=== PATIENT | female | born 1960 | race Caucasian/White ===

== ENCOUNTER 2022-09-18 16:56 | Emergency (ER) | payer BC ==
[2022-09-18] MEDS ORDERED: Sodium Chloride 0.9% 10 ML Syringe FLUSH PRN (17:49)
[2022-09-18] MEDS ORDERED: Iopamidol 612 MG/ML 100 ML Bottle IV ONE (18:03)
[2022-09-18] MEDS ORDERED: Sodium Chloride 0.9% 50 ML IV ONE (18:03)
[2022-09-18] MEDS ORDERED: Sodium Chloride 0.9% 10 ML Syringe FLUSH ONE (18:03)
[2022-09-18 18:14] LABS: ESTIMATED GFR 84 mL/min (>60)
== END 2022-09-18 20:03 | disposition home or self-care (01) ==
LOC: JP.ED 16:56
DX: R10.31 Right lower quadrant pain (principal); E78.00 Pure hypercholesterolemia, unspecified; Z79.899 Other long term (current) drug therapy
CPT/HCPCS: 36415; 74177; 80048; 81001; 81025; 85025; 86140; 99284; J3490; Q9967